=== PATIENT | male | born 2000 | race Caucasian/White ===

== ENCOUNTER 2023-01-07 21:24 | Emergency (ER) | payer BC ==
[~2023-01-07] VITALS: Ht 172.7 cm; Wt 74.8 kg
[2023-01-08 00:02] VITALS: BP 123/65
== END 2023-01-08 00:02 | disposition home or self-care (01) ==
LOC: ED 21:24
DX: F10.129 Alcohol abuse with intoxication, unspecified (principal); S50.311A Abrasion of right elbow, initial encounter; X58.XXXA Exposure to other specified factors, initial encounter
CPT/HCPCS: 36415; 80053; 81001; 83735; 85025; G0480; J3411; J7030